=== PATIENT | female | born 1965 | race Caucasian/White ===

== ENCOUNTER → 2020-07-05 09:25 | Outpatient (BNVA) | payer BC, SELFPAY | PROVIDERS: Visit Provider Advanced Practice Midwife ==

== ENCOUNTER 2020-08-16 12:31 | Outpatient (REF) | payer BC, SELFPAY ==
--- NOTE | ~2020-08-16 | US_ITS ---
EXAMINATION: US PELVIS CLINICAL INFORMATION: Postmenopausal atrophic vaginitis COMPARISON: Pelvis ultrasound dated 01/08/2017 TECHNIQUE: Ultrasound of the pelvis is performed using both transabdominal and transvaginal transducers along with Doppler. Transvaginal imaging is performed due to inadequate visualization transabdominally. FINDINGS: Uterus: The uterus is anteverted and measures 6.9 x 1.7 x 3.5 cm. The double wall endometrial thickness is 3 mm. The fundal myometrium is heterogeneous and 3 areas of more discrete altered echotexture are again identified, likely representing fibroids. 1. Location: Right aspect of the uterine fundus. Size: 1.0 x 0.8 x 1.0 cm. Previous: 1.7 x 1.6 x 1.5 cm. 2. Location: Right paramedian uterine fundus. Size: 0.9 x 0.8 x 0.9 cm. Previous: 0.8 x 1.1 x 1.1 cm. 3. Location: Mid uterine fundus. Size: 0.4 x 0.3 x 0.4 cm. Uncertain whether this correlates with a similar sized lesion on the previous ultrasound which measured 0.4 x 0.5 x 0.5 cm. Adnexa: Both ovaries are visualized. No dominant ovarian cyst or mass is demonstrated. Color Doppler is applied to the left ovary and is normal. Right ovary measures 0.9 x 0.4 x 0.8 cm. Left ovary measures 1.0 x 0.6 x 0.7 cm. There is no pelvic ascites or fluid collection. US/US pelvic and transvaginal IMPRESSION: Several small fibroids are identified, one having decreased in size since the previous ultrasound, but otherwise relatively unchanged. The remainder of the examination is unremarkable. There is no abnormal endometrial thickening. No focal adnexal lesion is demonstrated.
== END 2020-08-16 12:32 | disposition home or self-care (01) ==
LOC: HO.US 12:31
PROVIDERS: Visit Provider Advanced Practice Midwife
DX: N95.2 Postmenopausal atrophic vaginitis (principal)
CPT/HCPCS: 76830; 76856

== ENCOUNTER → 2020-09-12 12:27 | Outpatient (BNVA) | payer BC, SELFPAY | PROVIDERS: Visit Provider Advanced Practice Midwife ==

== ENCOUNTER 2021-07-09 13:36 | Outpatient (REF) | payer BC, SELFPAY ==
[2021-07-11 21:45] LABS: HPV mRNA E6/E7 rflx Not Detected (Not Detected)
== END 2021-07-09 13:37 | disposition home or self-care (01) ==
LOC: HO.LAB 13:36
PROVIDERS: PCP Internal Medicine; Visit Provider Advanced Practice Midwife
DX: Z01.419 Encounter for gynecological examination (general) (routine) without abnormal findings (principal); Z11.51 Encounter for screening for human papillomavirus (HPV)
CPT/HCPCS: 87624; 88142

== ENCOUNTER 2021-08-19 16:03 | Outpatient (REF) | payer BC, SELFPAY ==
--- NOTE | ~2021-08-19 | MM_ITS ---
EXAMINATION: MM SCREENING DIGITAL BREAST TOMOSYNTHESIS, BILATERAL CLINICAL INFORMATION: Screening. Asymptomatic. Family history breast cancer, sister. The lifetime risk of breast cancer based on the Tyrer-Cuzick Model is 19.7%. COMPARISON: Mammography: 11/14/2019, 02/11/2018, 09/09/2016 TECHNIQUE: Digital breast tomosynthesis is performed in both the craniocaudal and mediolateral oblique views along with computer-aided detection (CAD). Synthesized 2D images are generated from the tomosynthesis. FINDINGS: The breasts are heterogeneously dense, which may obscure small masses (ACR BI-RADS breast composition Category c). Breast tissue composition borders on extremely dense. Parenchymal pattern is similar to prior studies. There are no significant masses, abnormal calcifications, or other abnormalities. The axilla are unremarkable. Skin contours are smooth. MM/MM tomosynthesis screening BI IMPRESSION: No mammographic evidence of malignancy. ASSESSMENT: BI-RADS 1: Negative RECOMMENDATION: Routine annual mammography screening. This patient's information was entered into a reminder system with a target due date for their next mammogram.
== END 2021-08-19 16:04 | disposition home or self-care (01) ==
LOC: HO.MAMMO 16:03
PROVIDERS: PCP Internal Medicine; Visit Provider Advanced Practice Midwife
DX: Z12.31 Encounter for screening mammogram for malignant neoplasm of breast (principal)
CPT/HCPCS: 77063; 77067

== ENCOUNTER 2022-04-25 10:54 | Outpatient (REF) | payer BC, SELFPAY ==
[2022-04-25 14:03] LABS: MANUAL DIFF FLAG NO
[2022-04-25 14:41] LABS: Basophils Absolute Auto 0.1 X10*3/uL (0.0-0.2); Eosinophils Absolute Auto 0.1 X10*3/uL (0.0-0.4); Eosinophils Percent Auto 1.8 % (0-4); Hematocrit 42.1 % (37.0-47.0); Hemoglobin 13.9 g/dl (12.0-16.0); Imm Gran Abs Auto 0.01 X10*3/uL (0.00-0.03); Imm Gran Pct Auto 0.2 % (0.0-0.4); Lymphocytes Absolute Auto 1.6 X10*3/uL (1.2-4.9); Lymphocytes Percent Auto 31.3 % (20-40); Mean Corpuscular Hemoglobin 30.3 pg (27.0-33.0); Mean Corpuscular Volume 91.7 fL (80.0-98.0); Mean Platelet Volume 9.7 fL (9.4-12.3); Monocytes Absolute Auto 0.4 X10*3/uL (0.1-1.2); Monocytes Percent Auto 7.3 % (2-11); Neutrophils Percent Auto 58.4 % (45-73); Platelet Count 276 X10*3/uL (160-400); Red Blood Count 4.59 X10*6/uL (4.20-5.50); White Blood Count 5.1 X10*3/uL (4.8-10.8)
[2022-04-25 15:12] LABS: Alanine Aminotransferase 16 U/L (0-31); Albumin Level 4.3 g/dL (3.5-5.0); Alkaline Phosphatase 79 U/L (39-117); Anion Gap 12 (12-20); Aspartate Amino Transferase 19 U/L (5-31); Bilirubin Total 1.2 mg/dL (0.0-1.0); Blood Urea Nitrogen 13 mg/dL (9-16); Calcium 9.3 mg/dL (8.4-10.2); Carbon Dioxide 28 mmol/L (22-29); Chloride 105 mmol/L (96-108); Cholesterol 246 mg/dL; Estimated Glomerular Filt Rate > 60; Glucose Fasting 88 mg/dL (60-99); HDL Cholesterol 71 mg/dL; LDL Cholesterol Calculated 161 mg/dl; Potassium 3.9 mmol/L (3.3-5.1); Sodium 141 mmol/L (135-145); Total Protein 6.8 g/dL (6.5-8.0); Triglycerides 73 mg/dL
== END 2022-04-25 10:55 | disposition home or self-care (01) ==
LOC: HO.HMGCLDS 10:54
PROVIDERS: PCP Internal Medicine; Visit Provider Internal Medicine
DX: Z00.00 Encounter for general adult medical examination without abnormal findings (principal)
CPT/HCPCS: 36415; 80053; 80061; 85025

== ENCOUNTER 2022-07-30 10:56 | Outpatient (REF) | payer BC, SELFPAY ==
[2022-07-30 14:16] LABS: Cholesterol 227 mg/dL; HDL Cholesterol 61 mg/dL; LDL Cholesterol Calculated 154 mg/dl; Triglycerides 62 mg/dL
== END 2022-07-30 10:57 | disposition home or self-care (01) ==
LOC: HO.HMGCLDS 10:56
PROVIDERS: PCP Internal Medicine; Visit Provider Internal Medicine
DX: E78.00 Pure hypercholesterolemia, unspecified (principal)
CPT/HCPCS: 36415; 80061

== ENCOUNTER → 2022-08-21 13:12 | Outpatient (BNVA) | payer BC, SELFPAY | PROVIDERS: PCP Internal Medicine; Visit Provider Advanced Practice Midwife ==

== ENCOUNTER 2022-09-22 15:08 | Outpatient (REF) | payer BC, SELFPAY ==
--- NOTE | ~2022-09-22 | US_ITS ---
EXAMINATION: US PELVIS COMPLETE CLINICAL INFORMATION: Leiomyoma COMPARISON: Pelvic ultrasound 08/16/2020 TECHNIQUE: Transabdominal and transvaginal imaging was performed. FINDINGS: The uterus is of normal size and echogenicity measuring 6.6 x 1.1 x 3.3 cm. A regular homogeneous endometrium is identified measuring 0.1 cm. Nabothian cysts in the cervix. Dystrophic calcifications in the cervix. A 1.0 cm intramural myoma in the fundus of the uterus unchanged from prior. Few additional previously seen myomas were no longer identified. Both ovaries are of normal size and echogenicity. The right measures 1.6 x 0.8 x 0.8 cm for a volume of 0.5 mL. The left measures 0.9 x 1.3 x 1.0 cm for a volume of .6 mL. There is no pelvic free fluid. US/US pelvic and transvaginal IMPRESSION: 1. A 1.0 cm intramural myoma in the fundus unchanged from prior. Few additional previously seen myomas were no longer identified.
--- NOTE | ~2022-09-22 | MM_ITS ---
EXAMINATION: MM SCREENING DIGITAL BREAST TOMOSYNTHESIS, BILATERAL CLINICAL INFORMATION: Screening. Asymptomatic. The lifetime risk of breast cancer based on the Tyrer-Cuzick Model is 17%. COMPARISON: Mammography: This study is compared with prior exams dating back to 2018. TECHNIQUE: Digital breast tomosynthesis is performed in both the craniocaudal and mediolateral oblique views along with computer-aided detection (CAD). Synthesized 2D images are generated from the tomosynthesis. FINDINGS: The breasts are heterogeneously dense, which may obscure small masses (ACR BI-RADS breast composition Category c). There are no significant masses, abnormal calcifications, or other abnormalities. MM/MM tomosynthesis screening BI IMPRESSION: No mammographic evidence of malignancy. ASSESSMENT: BI-RADS BI-RADS 1 - Negative RECOMMENDATION: Routine annual mammography screening. 1 year F/U This examination should not preclude the clinical evaluation of a suspicious palpable abnormality. This patient's information was entered into a reminder system with a target due date for their next mammogram.
== END 2022-09-22 15:09 | disposition home or self-care (01) ==
LOC: HO.US 15:08
PROVIDERS: PCP Internal Medicine; Visit Provider Advanced Practice Midwife
DX: Z12.31 Encounter for screening mammogram for malignant neoplasm of breast (principal); D25.9 Leiomyoma of uterus, unspecified
CPT/HCPCS: 76830; 76856; 77063; 77067

== ENCOUNTER → 2022-09-22 16:15 | Outpatient (BNV) | payer BC, SELFPAY | PROVIDERS: PCP Internal Medicine; Visit Provider Radiology Diagnostic Radiology | DX: Z12.31 Encounter for screening mammogram for malignant neoplasm of breast (principal) | CPT/HCPCS: 77063; 77067 ==

== ENCOUNTER 2022-10-08 07:43 | Outpatient (AMB) | payer BC, SELFPAY ==
--- NOTE | 2022-10-08 07:44 | A.OFFVIS_ITS ---
Intake Intake Visit Reasons: TV US resilts Intake Note: cell #[phone] The patient agreed to use of a medical numerical control operator during this encounter. Scribed for CHRISTIANE Grant by Eloise Hull medical numerical control operator, on 10/08/2022 at 8:00 am EST. Allergies No Known Allergies Allergy (Verified 10/08/22 07:44) HPI HPI Comments History of Present Illness Details Doximity live video 8:00 am- 8:02 am. Phone Call due to Covid-19 Pandemic. Video was utilized. She presents via phone/live video to discuss US results regarding fibroids. She is doing well with no complaints or concerns. [facility] Medical History Atrophic vaginitis Uterine fibroid Family History Sister Breast cancer Skin cancer Brain aneurysm Family/Other Ovarian cancer Father Aortic aneurysm Family/Other Breast cancer Social History Alcohol intake: current Alcohol intake frequency: a few times a week Patient Tobacco Use Status: Never used Tobacco Sexual orientation: Straight/Heterosexual Gender identity: Female Female Reproductive History Menstrual Age of Menarche: 12 Physical Exam Const General: cooperative, healthy appearing, comfortable, no acute distress, well developed, alert and awake Other: General: Yes bladder normal to palpation External Female Exam: normal external appearance and normal appearance of the urethra Speculum Exam - Vagina: normal appearance of the vagina, normal palpation and normal vaginal discharge Speculum Exam - Cervix: normal appearance of the cervix and normal palpation Bimanual exam- vagina & uterus: normal bimanual exam, normal palpation, bladder normal to palpation and normal palpation Bimanual Exam- Adnexa, other: normal adnexae and no masses Results Reviewed Results Reviewed: EXAMINATION: US PELVIS COMPLETE CLINICAL INFORMATION: Leiomyoma COMPARISON: Pelvic ultrasound 08/16/2020 TECHNIQUE: Transabdominal and transvaginal imaging was performed. FINDINGS: The uterus is of normal size and echogenicity measuring 6.6 x 1.1 x 3.3 cm. A regular homogeneous endometrium is identified measuring 0.1 cm. Nabothian cysts in the cervix. Dystrophic calcifications in the cervix. A 1.0 cm intramural myoma in the fundus of the uterus unchanged from prior. Few additional previously seen myomas were no longer identified. Both ovaries are of normal size and echogenicity. The right measures 1.6 x 0.8 x 0.8 cm for a volume of 0.5 mL. The left measures 0.9 x 1.3 x 1.0 cm for a volume of .6 mL. There is no pelvic free fluid. US/US pelvic and transvaginal IMPRESSION: 1.? A 1.0 cm intramural myoma in the fundus unchanged from prior. Few additional previously seen myomas were no longer identified. Assessment & Plan Assessment & Plan (1) Encounter to discuss test results: Code(s): Z71.2 - Person consulting for explanation of examination or test findings Plan: Discussed: US findings of: A 1.0 cm intramural myoma in the fundus unchanged from prior. Few additional previously seen myomas were no longer identified. Fibroids tend to shrink in menopause. Report any PMB, pelvic pressure, bloating, or pain. Expectant management follow up yearly for stability. All of her questions and concerns were addressed to the best of my ability and shared decision making. She is agreeable to plan of care. (2) Fibroids: Code(s): D21.9 - Benign neoplasm of connective and other soft tissue, unspecified Telehealth Telehealth Location of provider rendering services: practice address Location of patient: other Patient Identification confirmed using: Name, : Yes Telehealth method: video Patient verbally consented to treatment: Yes Patient verbally consented to billing insurance company: Yes Patient informed of any privacy concerns related to visit: Yes Coding Level of Care Code Tele Est Pt Level 3 (44210) Diagnoses Encounter to discuss test results Z71.2 Fibroids D21.9
== END 2022-10-08 08:08 | disposition home or self-care (01) ==
LOC: HO.HWS 07:44
PROVIDERS: PCP Internal Medicine; Visit Provider Advanced Practice Midwife
DX: Z71.2 Person consulting for explanation of examination or test findings (principal); D21.9 Benign neoplasm of connective and other soft tissue, unspecified
CPT/HCPCS: 99213

== ENCOUNTER → 2022-10-08 07:43 | Outpatient (BNVA) | payer BC, SELFPAY | PROVIDERS: PCP Internal Medicine; Visit Provider Advanced Practice Midwife ==

== ENCOUNTER 2023-11-03 10:30 | Outpatient (AMB) | payer BC, SELFPAY ==
[2023-11-03 10:37] VITALS: BP 116/68; BMI 32.3
--- NOTE | 2023-11-03 10:37 | MHC.OFFVIS ---
Vital Signs 11/03/23 10:37 Height 5 ft 7 in Weight 206 lb 4 oz BMI 32.3 BP 116/68 Blood Pressure Location Lt brachial Position Sitting Intake Visit Reasons: STD/severe rash Assistant Community Manager: Assistant Community Manager Present Allergies No Known Allergies Allergy (Verified 11/03/23 10:41) Is last menstrual period known: Yes HPI Comments Details: Patient is here today with concerns: History a bug bite on her left gluteal area September 17 that produced a large [place]sem[place] indian tribe of erythema, and was subsequently seen at [facility] 2 weeks later. She was told there that it appeared to be a insect bite which was not infected and did not require any antibiotics treatment. She reports the redness continued to spread to the other buttock and has been itchy. She has a history of HSV and completed 5 days antiviral medication, just in case it was a HSV infection, she reports the medication did not improve her symptoms. She provided a cell phone picture was provided from an earlier timeframe and verified a large [place]sem[place] indian tribe of erythema extending on left side. [facility] Medical History Uterine fibroid Atrophic vaginitis Family History Sister Breast cancer Skin cancer Brain aneurysm Family/Other Ovarian cancer Father Aortic aneurysm Family/Other Breast cancer Social History Alcohol intake: current Alcohol intake frequency: a few times a week Patient Tobacco Use Status: Never used Tobacco Sexual orientation: Straight/Heterosexual Gender identity: Female Female Reproductive History Menstrual Age of Menarche: 12 control method: none Date of last pap smear: 07/10/21 History of abnormal pap smear: No History of STI: Yes (Herpes) Date of Mammogram: 09/22/22 History of abnormal mammogram: No Review of Systems Const All systems reviewed & are unremarkable except as noted in HPI and below Endo Reports no additional complaints Physical Exam Vital Signs: Last Vital Signs BP 116/68 11/03/23 10:37 BMI result Body Mass Index 32.3 Const General: cooperative, healthy appearing and no acute distress Skin Other: Examination of the buttocks: Faint diffuse pink rash extending to the sacral region bilaterally, left gluteal region in area of original insect bite is well healed, no induration, tenderness, no indications of infection. Psych Appearance: well kempt Attitude: cooperative Thought process: Normal thought process present Assessment & Plan Assessment & Plan (1) Skin irritation: Code(s): R23.8 - Other skin changes Plan Discussed her concerns, it does not appear to be a HSV outbreak, most likely an insect bite caused inflammation which progressed, is not infected. Consider trying an [id number] hydrocortisone cortisone or Benadryl cream for itching. Advised to follow up with her primary care to address her concerns and to follow up if there is any allergic response to an insect bite and further precautionary measures in the future. Next bowling ball engraver appointment is 12/30/2023. All of her questions and concerns were addressed to the best of my ability and shared decision making. She is agreeable to the plan of care. This note is constructed using voice recognition software. While every effort has been made to ensure accuracy, truck technician errors may have been included. Coding Level of Care Code Est Pt Level 3 (17841) Diagnoses Skin irritation R23.8
== END 2023-11-03 11:02 | disposition home or self-care (01) ==
LOC: HO.HWS 10:30
PROVIDERS: PCP Internal Medicine; Visit Provider Advanced Practice Midwife
DX: R23.8 Other skin changes (principal)
CPT/HCPCS: 99213

== ENCOUNTER → 2023-11-03 10:30 | Outpatient (BNVA) | payer BC, SELFPAY | PROVIDERS: PCP Internal Medicine; Visit Provider Advanced Practice Midwife ==

== ENCOUNTER 2023-11-17 13:09 | Outpatient (REF) | payer BC, SELFPAY ==
[2023-11-18 20:08] LABS: Lyme Blot 6.08 index
[2023-11-19 10:52] LABS: Lyme Abs Screen POSITIVE
[2023-11-19 19:03] LABS: 18 KD (IgG) Band REACTIVE; 23 KD (IgG) Band NON-REACTIVE; 23 KD (IgM) Band REACTIVE; 28 KD (IgG) Band NON-REACTIVE; 30 KD (IgG) Band NON-REACTIVE; 39 KD (IgM) Band REACTIVE; 39KD (IgG) Band REACTIVE; 41 KD (IgM) Band NON-REACTIVE; 41KD (IgG) Band REACTIVE; 45 KD (IgG) Band NON-REACTIVE; 58 KD (IgG) Band REACTIVE; 66 KD (IgG) Band NON-REACTIVE; 93 KD (IgG) Band NON-REACTIVE; Lyme IgG Blot Interp NEGATIVE (NEGATIVE); Lyme IgM Blot Interp POSITIVE (NEGATIVE)
== END 2023-11-17 13:10 | disposition home or self-care (01) ==
LOC: HO.HMGCLDS 13:09
PROVIDERS: PCP Internal Medicine; Visit Provider Internal Medicine
DX: R21 Rash and other nonspecific skin eruption (principal)
CPT/HCPCS: 36415; 86617; 86618

== ENCOUNTER 2023-12-30 11:20 | Outpatient (AMB) | payer BC, SELFPAY ==
--- NOTE | 2023-12-30 11:23 | MHC.OFFVIS ---
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 She is doing well with no concerns. Request refill on Valtrex, occasional outbreak. Attempting to eat a healthy diet with calcium and vitamin D and stays active with exercise-walking. Currently sexually active. Denies any vaginal dryness or irritation. Uses Replens. Last pap smear; 2021. Last mammogram; 2022. Colonoscopy is UTD. Denies any family history of breast, ovarian or colon cancer. [facility] Medical History Uterine fibroid Atrophic vaginitis Family History (Updated 12/30/23 @ 11:49 by Whitney Bone CNM) Sister Breast cancer Skin cancer Brain aneurysm Family/Other Ovarian cancer Father Aortic aneurysm Family/Other Breast cancer Social History Alcohol intake: current Alcohol intake frequency: a few times a week Patient Tobacco Use Status: Never used Tobacco Sexual orientation: Straight/Heterosexual Gender identity: Female Female Reproductive History Menstrual Age of Menarche: 12 Total pregnancies: 0 Date of last pap smear: 07/09/21 (negative pap smear, negative hpv) Date of Mammogram: 09/22/22 (bi-rad 1) Review of Systems Const All systems reviewed & are unremarkable except as noted in HPI and below Reports as per HPI Eyes Reports no additional complaints ENT Reports no additional complaints Card Reports no additional complaints Resp Reports no additional complaints GI Reports as per HPI and Reports no additional complaints Reports as per HPI Musc Reports no additional complaints Skin/Breast Reports as per HPI Neuro Reports no additional complaints Psych Reports no additional complaints Endo Reports no additional complaints Niels/Lymph Reports no additional complaints Aller/Immun Reports no additional complaints Physical Exam Vital Signs: Last Vital Signs BP 126/88 12/30/23 11:29 BMI result Body Mass Index 32.1 Const General: cooperative, healthy appearing, no acute distress, well developed and alert Orientation/consciousness: patient oriented x3 HEENT Head: Yes normal to inspection Eyes General: appearance normal, both eyes and all related structures Neck Neck: Yes normal visual inspection Thyroid: Thyroid normal Chest Chest palpation & inspection: normal inspection of the chest and other (no puckering, dimpling, peau de orange, retraction, discharge, masses) Breast/axilla inspection: normal inspection of the breasts Breast/axilla palpation: normal palpation of the breasts Resp Effort & Inspection: normal respiratory effort GI Inspection: Yes normal to inspection Palpation (GI): Soft to palpation Rectal Exam - Female: deferred General: Yes bladder normal to palpation External Female Exam: normal external appearance and normal appearance of the urethra Speculum Exam - Vagina: normal appearance of the vagina, normal palpation and normal vaginal discharge Speculum Exam - Cervix: normal appearance of the cervix and normal palpation Bimanual exam- vagina & uterus: normal bimanual exam, normal palpation, uterine size normal, bladder normal to palpation, normal palpation and non-tender Bimanual Exam- Adnexa, other: no masses Skin General skin exam: no rashes or lesions noted Rashes: no rashes Neuro General: patient oriented x3 Cognition (Neuro): normal cognition Extrem General: Yes normal to inspection Psych Attitude: cooperative Thought process: Normal thought process present Assessment & Plan Assessment & Plan (1) Encounter for annual routine gynecological examination: Code(s): Z01.419 - Encounter for gynecological examination (general) (routine) without abnormal findings Category: Medical Plan Discussed: Current recommendations for pap smears per ASCCP guidelines. Breast awareness, periodic self breast exams and yearly mammogram. Maintain a healthy lifestyle, well balanced diet including Calcium 1,200 mg and Vitamin D 600 IU daily, and routine exercise. Contact the office with any postmenopausal bleeding. Patient verbalizes understanding and agrees to the plan of care. She was given opportunity to ask questions and all questions were answered to the best of my ability. RTO in 1 year for annual storage battery inspector exam. This note is constructed using voice recognition software. While every effort has been made to ensure accuracy, public relations coordinator errors may have been included. Orders: Orders MM tomosynthesis screening BI Today Z12.31 - Encounter for screening mammogram for malignant neoplasm of breast Medications: New valacyclovir (Valtrex) Take 1 b.i.d. for 3 days, repeat as needed 500 mg PO BID 3 days 90 tabs 0RF Coding Level of Care Code Est Pt Prev Care 40-64y(57036) Diagnoses Encounter for annual routine gynecological examination Z01.419
[2023-12-30 11:29] VITALS: BP 126/88; BMI 32.1
== END 2023-12-30 12:01 | disposition home or self-care (01) ==
LOC: HO.HWS 11:21
PROVIDERS: PCP Internal Medicine; Visit Provider Advanced Practice Midwife
DX: Z01.419 Encounter for gynecological examination (general) (routine) without abnormal findings (principal)
CPT/HCPCS: 99396

== ENCOUNTER 2024-02-12 13:21 | Outpatient (REF) | payer BC, SELFPAY | END 2024-02-12 13:22 | disposition home or self-care (01) | LOC: HO.MAMMO 13:21 | PROVIDERS: PCP Internal Medicine; Visit Provider Advanced Practice Midwife | DX: Z12.31 Encounter for screening mammogram for malignant neoplasm of breast (principal) | CPT/HCPCS: 77063; 77067 ==

== ENCOUNTER → 2024-02-12 13:30 | Outpatient (BNV) | payer BC, SELFPAY | PROVIDERS: PCP Internal Medicine; Visit Provider Internal Medicine | DX: Z12.31 Encounter for screening mammogram for malignant neoplasm of breast (principal) | CPT/HCPCS: 77063; 77067 ==